=== PATIENT | female | born 1965 | race Caucasian/White ===

== ENCOUNTER → 2017-03-18 | Outpatient (CLI) | payer OTHER | LOC: CIMAGING 10:53 | PROVIDERS: ATTEND Obstetrics & Gynecology Gynecology | DX: Z12.31 Encounter for screening mammogram for malignant neoplasm of breast (principal) | CPT/HCPCS: G0202 ==

== ENCOUNTER → 2018-04-07 | Outpatient (CLI) | payer OTHER | LOC: CIMAGING 14:48 | PROVIDERS: ATTEND Obstetrics & Gynecology Gynecology | DX: Z12.31 Encounter for screening mammogram for malignant neoplasm of breast (principal) ==

== ENCOUNTER → 2018-04-11 | Outpatient (CLI) | payer OTHER | LOC: CIMAGING 12:38 | PROVIDERS: ATTEND Obstetrics & Gynecology Gynecology | DX: N60.02 Solitary cyst of left breast (principal) | CPT/HCPCS: 76641-PO ==